=== PATIENT | female | born 1995 | race Caucasian/White ===

== ENCOUNTER 2023-09-13 19:01 | Outpatient (CLI) | payer OTHER ==
[~2023-09-13] VITALS: Ht 167.6 cm; Wt 101.4 kg
--- NOTE | 2023-09-13 19:05 | NUR ---
G2L0 at 29 weeks and 5 days arrives to unit with complaint of decreased movement. Pt states she last felt a small movement around 1800 but the baby's movement has not been like normal for most of the day. Pt currently has an upper respiratory infection and does not feel well. Was seen at urgent care today and tested negative for influenza, covid, and strep but started taking tylenol and sudafed. Pt denies any fevers with this illness, denies contractions or LOF, denies vaginal bleeding. Pt oriented to room, call light within reach, bed in low and locked position. US and toco explained and applied. Admission assessment started. Vitals obtained.
--- NOTE | 2023-09-13 19:27 | NUR ---
Dr. Bonilla at bedside reassuring patient of reactive FHR tracing.
[2023-09-13 19:30] VITALS: BP 125/88; PULSE 93; TEMP 98.1
--- NOTE | 2023-09-13 19:45 | NUR ---
This nurse to bedside. Reactive FHR tracing obtained and patient has felt baby move. Pt and spouse reassured.
[2023-09-13] MEDS ORDERED: PRENATAL TABLET PO (19:59)
[2023-09-13] MEDS ORDERED: LR 1,000 ML IV PRN (20:00)
[2023-09-13] MEDS ORDERED: TYLENOL 500MG500 MG PO (20:00)
--- NOTE | 2023-09-13 20:15 | NUR ---
Kick count education provided. Discharge instructions reviewed, pt verbalized understanding. Pt seen ambulating off unit in stable condition with spouse.
== END 2023-09-13 20:15 | disposition home or self-care (01) ==
LOC: LDRO 19:01
DX: O36.8130 Decreased fetal movements, third trimester, not applicable or unspecified (principal); Z3A.29 29 weeks gestation of pregnancy